=== PATIENT | female | born 1950 | race Caucasian/White ===

== ENCOUNTER → 2018-02-02 | Outpatient (CLI) | payer MEDICARE ==
[~2018-02-02] MED LIST: ALEN70TA3 PO; AMLO10TA2 PO; AMLO1CAP12 PO; ASPI325T80 PO; BENA20TA2 PO; BENEFIBER PO; BETA2500 PO; BIOT5TAB PO; CALCIUM CITRATE PO; DULA0.75 SC; EMPA10TA PO; ESTR42.53 VG; FISH OIL OMEGA1 EACH PO; HCTZ PO; HYDR25TA6 PO; LACT1CAP37 PO; LIRA0.6P INJ; MATURE MULTI VITAMIN PO; METF100010 PO; METF500T4 PO; NORT25CA PO; ONDA4TAB12 PO; OXYC5TAB3 PO; POLY17PO5 PO; PRAV20TA2 PO; PRED5TAB PO; ROSU10TA PO; VALA10004 PO; VICTOZA SC; VITAMIN D3 PO; [UNRECOGNIZED DRUG - CODE] PO
== END | disposition home or self-care (01) ==
LOC: CFH 13:01
PROVIDERS: ATTEND Urology
DX: N20.0 Calculus of kidney (principal); M47.896 Other spondylosis, lumbar region
CPT/HCPCS: 74018

== ENCOUNTER 2018-02-03 07:19 | Day surgery (SDC) | payer MEDICARE ==
[~2018-02-03] VITALS: Ht 185.4 cm; Wt 109.5 kg
[2018-02-03 08:09] VITALS: BP 128/82
[2018-02-03] MEDS ORDERED: LACTATED RINGERS 1,000 ML IV SCH (08:12)
[2018-02-03] MEDS ORDERED: LIDOCAINE-MPF 1%, 2ML ONE (08:17)
[2018-02-03] MEDS ORDERED: LIDOCAINE-MPF 1%, 2ML INFIL ONE (08:30)
[2018-02-03] MEDS ORDERED: FENTANYL PF 250 MCG/5ML ONE (09:26)
[2018-02-03] MEDS ORDERED: MIDAZOLAM 1 MG/ML, 2ML ONE (09:26)
[2018-02-03] MEDS ORDERED: DEXAMETHASONE 4 MG/ML, 1ML ONE (09:47)
[2018-02-03] MEDS ORDERED: ONDANSETRON 2MG/ML, 2ML ONE (09:47)
[2018-02-03] MEDS ORDERED: PROMETHAZINE 12.5 MG SUPP PR PRN (10:00)
[2018-02-03] MEDS ORDERED: DIAZEPAM 5 MG/ML, 2ML IVPush PRN (10:00)
[2018-02-03] MEDS ORDERED: ONDANSETRON 2MG/ML, 2ML IVPush PRN (10:00)
[2018-02-03] MEDS ORDERED: ACETAMINOPHEN 325 MG TABLET PO PRN (10:00)
[2018-02-03] MEDS ORDERED: morphine SULFATE 10 MG/ML, 1ML IV PRN (10:00)
[2018-02-03] MEDS ORDERED: MEPERIDINE/PF 25MG/0.5ML IVPush PRN (10:00)
[2018-02-03] MEDS ORDERED: FENTANYL PF 100 MCG/2ML IV PRN (10:00)
[2018-02-03] MEDS ORDERED: PROMETHAZINE 25 MG/ML, 1ML IV PRN (10:00)
[2018-02-03] MEDS ORDERED: EPHEDRINE 50 MG/ML, 1ML IVPush PRN (10:00)
[2018-02-03] MEDS ORDERED: LORazepam 2 MG/ML, 1ML IVPush PRN (10:00)
[2018-02-03] MEDS ORDERED: MIDAZOLAM 1 MG/ML, 2ML IV PRN (10:00)
[2018-02-03] MEDS ORDERED: OXYcodone 5 MG/5 ML ORAL.SOL UDC PO PRN (10:00)
[2018-02-03] MEDS ORDERED: PROPOFOL 10 MG/ML, 20ML ONE ×2 (10:49)
[2018-02-03] MEDS ORDERED: CEFAZOLIN 1,000 MG ONE ×2 (10:49)
[2018-02-03] MEDS ORDERED: FENTANYL PF 100 MCG/2ML ONE (11:49)
[2018-02-03] MEDS ORDERED: ALENDRONATE 70 MG TABLET PO SCH (12:30)
[2018-02-03] MEDS ORDERED: DULAGLUTIDE SC SCH (12:30)
[2018-02-03] MEDS ORDERED: ESTRADIOL 1 GM VG SCH (12:30)
[2018-02-03] MEDS ORDERED: OXYcodone IR 5MG TABLET ONE (13:42)
[2018-02-03] MEDS ORDERED: DHA PO SCH (21:00)
[2018-02-03] MEDS ORDERED: TEMPLATE NON-FORMULARY MED. (Metformin Hcl** (Metformin Hcl Er**) 1,000 MG) PO SCH (21:00)
[2018-02-03] MEDS ORDERED: FISH OIL PO SCH (21:00)
[2018-02-03] MEDS ORDERED: TEMPLATE NON-FORMULARY MED. (Rosuvastatin Calcium** (Crestor**) 10 MG) PO SCH (21:00)
[2018-02-03] MEDS ORDERED: [UNRECOGNIZED DRUG - OTHER] PO SCH (21:00)
[2018-02-03] MEDS ORDERED: EPA PO SCH (21:00)
[2018-02-03] MEDS ORDERED: VALACYCLOVIR HCL 1000 MG PO SCH (21:00)
[2018-02-03] MEDS ORDERED: OMEGA PO SCH (21:00)
[2018-02-04] MEDS ORDERED: ANTI ACID PO SCH (09:00)
[2018-02-04] MEDS ORDERED: INTLU PO SCH (09:00)
[2018-02-04] MEDS ORDERED: AMLODIPINE BESYLATE PO SCH (09:00)
[2018-02-04] MEDS ORDERED: HYDROCHLOROTHIAZIDE 25 MG TABLET PO SCH (09:00)
[2018-02-04] MEDS ORDERED: [UNRECOGNIZED DRUG - OTHER] PO SCH (09:00)
[2018-02-04] MEDS ORDERED: [UNRECOGNIZED DRUG - REMARK] PO SCH (09:00)
[2018-02-04] MEDS ORDERED: TEMPLATE NON-FORMULARY MED. (Biotin** 5 MG) PO SCH (09:00)
[2018-02-04] MEDS ORDERED: BENAZEPRIL PO SCH (09:00)
[2018-02-04] MEDS ORDERED: [UNRECOGNIZED DRUG - OTHER] PO SCH (09:00)
[2018-02-04] MEDS ORDERED: MATURE MULTI VITAMIN PO SCH (09:00)
== END 2018-02-03 16:55 | disposition home or self-care (01) ==
LOC: OUT 07:19
PROVIDERS: ATTEND Urology
DX: N20.1 Calculus of ureter (principal); Z72.89 Other problems related to lifestyle; Z87.891 Personal history of nicotine dependence; Z98.51 Tubal ligation status; Z90.49 Acquired absence of other specified parts of digestive tract; Z98.890 Other specified postprocedural states
CPT/HCPCS: 50590; 52332; 82962; C1758; C1769; C2617; J0690; J1100; J2250; J2405; J2704; J3010; J3490; J7120

== ENCOUNTER → 2018-03-08 | Outpatient (CLI) | payer MEDICARE | LOC: CFH 12:01 | PROVIDERS: ATTEND Internal Medicine Cardiovascular Disease | DX: Z13.6 Encounter for screening for cardiovascular disorders (principal); I10 Essential (primary) hypertension; I25.10 Atherosclerotic heart disease of native coronary artery without angina pectoris | CPT/HCPCS: 78452; 93017; A9502 ==

== ENCOUNTER → 2018-04-05 | Outpatient (CLI) | payer MEDICARE | END | disposition home or self-care (01) | LOC: CVU 13:33 | PROVIDERS: ATTEND Internal Medicine Cardiovascular Disease | DX: Z13.6 Encounter for screening for cardiovascular disorders (principal); I10 Essential (primary) hypertension; I35.8 Other nonrheumatic aortic valve disorders | CPT/HCPCS: 93306 ==

== ENCOUNTER → 2019-01-18 | Outpatient (CLI) | payer MEDICARE ==
[~2019-01-18] MED LIST changes: -AMLO10TA2 PO; +AMLO10TA8 PO; -BENA20TA2 PO; +BENA20TA54 PO; +METF500T17 PO; -METF500T4 PO; -NORT25CA PO; +NORT25CA78 PO; -ROSU10TA PO; +ROSU10TA2 PO
== END | disposition home or self-care (01) ==
LOC: CFH 08:16
PROVIDERS: ATTEND Internal Medicine Gastroenterology
DX: D12.2 Benign neoplasm of ascending colon (principal); D12.5 Benign neoplasm of sigmoid colon; K86.3 Pseudocyst of pancreas; D64.89 Other specified anemias; K63.5 Polyp of colon; Z80.0 Family history of malignant neoplasm of digestive organs
CPT/HCPCS: 76700

== ENCOUNTER 2019-05-10 09:22 | Outpatient (CLI) | payer MEDICARE | END 2019-05-10 23:59 | disposition home or self-care (01) | LOC: CFH 09:22 | PROVIDERS: ATTEND Internal Medicine Cardiovascular Disease | DX: I35.8 Other nonrheumatic aortic valve disorders (principal); I31.3 Pericardial effusion (noninflammatory); I10 Essential (primary) hypertension; I47.1 Supraventricular tachycardia; E78.5 Hyperlipidemia, unspecified | CPT/HCPCS: 93306 ==

== ENCOUNTER 2019-10-28 11:38 | Outpatient (CLI) | payer MEDICARE ==
[~2019-10-28 11:38] MED LIST changes: -AMLO1CAP12 PO; +AMLO1CAP13 PO
== END 2019-10-28 23:59 | disposition home or self-care (01) ==
LOC: CFH 11:38
PROVIDERS: ATTEND Internal Medicine Cardiovascular Disease
DX: I35.8 Other nonrheumatic aortic valve disorders (principal); I47.1 Supraventricular tachycardia; M47.819 Spondylosis without myelopathy or radiculopathy, site unspecified; I10 Essential (primary) hypertension; E78.5 Hyperlipidemia, unspecified; Z88.8 Allergy status to other drugs, medicaments and biological substances; Z13.6 Encounter for screening for cardiovascular disorders
CPT/HCPCS: 74018; 93306